=== PATIENT | female | born 1980 | race Hispanic/Latino ===

== ENCOUNTER 2022-07-04 13:35 | Emergency (ER) | payer OTHER ==
[~2022-07-04] VITALS: Ht 160 cm; Wt 75.7 kg
[2022-07-04] MEDS ORDERED: KETOROLAC TROMETHAMINE 30 MG/ML VIAL IV STA (15:47)
[2022-07-04] MEDS ORDERED: FAMOTIDINE 20 MG/2 ML VIAL IV STA (15:47)
[2022-07-04] MEDS ORDERED: FAMOTIDINE40 MG PO (16:52)
[2022-07-04] MEDS ORDERED: KLONOPIN0.5 MG PO (16:56)
[2022-07-04] MEDS ORDERED: DONNATAL/LIDOCAINE/MAALOX 30 ML SUSP PO ONE (17:15)
[2022-07-04] MEDS ORDERED: LIDOCAINE VISC 2% SOLN 15 ML UDC ONE (17:16)
[2022-07-04] MEDS ORDERED: MAGNESIUM/ALUMINUM/SIMETHICONE 30 ML UDC ONE (17:16)
[2022-07-04] MEDS ORDERED: BELLADONNA ALK/PHENOBARBITAL 5 ML UDC ONE (17:17)
== END 2022-07-04 17:22 | disposition home or self-care (01) ==
LOC: FSED 13:38
DX: R06.02 Shortness of breath (principal); R07.89 Other chest pain; K21.9 Gastro-esophageal reflux disease without esophagitis; F41.0 Panic disorder [episodic paroxysmal anxiety]; F41.9 Anxiety disorder, unspecified
CPT/HCPCS: 71046; 80053; 81003; 82553; 84484; 85025; 93005; 99284; J1885